=== PATIENT | male | born 1990 | race Caucasian/White ===

== ENCOUNTER 2021-04-14 23:12 | Emergency (ER) | payer SELFPAY ==
[2021-04-14] MEDS ORDERED: DIPHTH,PERTUSS(ACELL),TET 0.5 ML DISP.SYRIN IM ONE (23:15)
[2021-04-14] MEDS ORDERED: CEFAZOLIN 1 GM/D5W 1 GM/50 ML BAG IVPB ONE (23:15)
[2021-04-14] MEDS ORDERED: ONDANSETRON 4 MG/2 ML VIAL IVPUSH ONE (23:18)
[2021-04-14 23:21] VITALS: BMI 22.6
[2021-04-14] MEDS ORDERED: SODIUM CHLORIDE 0.9% 500 ML INFUS.BAG IV ONE (23:21)
[2021-04-14] MEDS ORDERED: fentaNYL CITRATE 250 MCG/5 ML VIAL ONE (23:21)
[2021-04-14] MEDS ORDERED: ceFAZolin SODIUM 1 GM VIAL ONE (23:22)
[2021-04-14 23:29] LABS: BASO % 0.5 % (0-2.0); EOS % 3.4 % (0-4.5); HEMATOCRIT 41.9 % (35.4-49); HEMOGLOBIN 14.1 GM/dL (11.7-16.9); LYMPH % 33.2 % (8-40); MCHC 33.6 g/dl (32.0-35.9); MEAN CELL VOLUME 89.2 fl (80-96); MEAN PLT VOLUME 7.7 fl (7.5-11.1); MONO % 9.2 % (3.8-10.2); NEUT % 53.7 % (42.8-82.8); PLATELET COUNT 306 10^3/uL (134-434); WHITE BLOOD COUNT 10.8 K/mm3 (4.0-10.0)
[2021-04-14 23:39] LABS: INR 1.02 (0.83-1.09); PROTHROMBIN TIME (PATIENT) 11.7 SEC (9.7-13.0)
[2021-04-14 23:41] LABS: ACTIVATED PTT 25.9 SECONDS (25.2-36.5)
[2021-04-14] MEDS ORDERED: CEFAZOLIN 1 GM in DEXTROSE 5%-WATER - 1 GM/50 ML IVPB IVPB ONE (23:43)
[2021-04-14 23:48] LABS: ALBUMIN 4.5 g/dl (3.4-5.0); CALCIUM 8.8 mg/dL (8.5-10.1)
[2021-04-14 23:51] LABS: CREATININE 1.3 mg/dL (0.55-1.3)
[2021-04-14 23:53] LABS: BILIRUBIN,TOTAL 0.4 mg/dL (0.2-1); TOT PROT 7.9 g/dl (6.4-8.2)
[2021-04-15 00:18] LABS: LACTIC ACID 6.8 mmol/L (0.4-2.0)
[2021-04-15 01:11] VITALS: BP 126/79; PULSE 98
== END 2021-04-15 01:12 | disposition short-term general hospital (02) ==
LOC: JER 23:12
PROC: 3E03329 Introduction of Other Anti-infective into Peripheral Vein, Percutaneous Approach (ICD-10-PCS; principal; 2021-04-14)
PROC: 3E033NZ Introduction of Analgesics, Hypnotics, Sedatives into Peripheral Vein, Percutaneous Approach (ICD-10-PCS; 2021-04-14)
PROC: 3E033GC Introduction of Other Therapeutic Substance into Peripheral Vein, Percutaneous Approach (ICD-10-PCS; 2021-04-14)
PROC: 3E0234Z Introduction of Serum, Toxoid and Vaccine into Muscle, Percutaneous Approach (ICD-10-PCS; 2021-04-14)
DX: S71.101A Unspecified open wound, right thigh, initial encounter (principal); X95.9XXA Assault by unspecified firearm discharge, initial encounter
CPT/HCPCS: 36415; 71045-TC-FY; 72170-TC-FY; 73552-TC-RT-FY; 80053; 83605; 85025; 85610; 85730; 86850; 86900; 86901; 90715; 93005; 93010; 99285-25